=== PATIENT | male | born 2000 | race Caucasian/White ===

== ENCOUNTER 2022-01-28 14:46 | Emergency (ER) | payer OTHER ==
[~2022-01-28] VITALS: Ht 162.6 cm; Wt 52.2 kg
[2022-01-28] MEDS ORDERED: IBUPROFEN 600 MG TAB PO STA (15:08)
[2022-01-28] MEDS ORDERED: IBUPROFEN 600 MG TAB ONE (15:49)
[2022-01-28] MEDS ORDERED: IBUPROFEN600 MG PO (16:18)
== END 2022-01-28 16:30 | disposition home or self-care (01) ==
LOC: FSED 14:53
DX: S62.317A Displaced fracture of base of fifth metacarpal bone, left hand, initial encounter for closed fracture (principal); W22.09XA Striking against other stationary object, initial encounter; R45.88 Nonsuicidal self-harm; Y92.89 Other specified places as the place of occurrence of the external cause; F17.210 Nicotine dependence, cigarettes, uncomplicated
CPT/HCPCS: 99284